=== PATIENT | male | born 1985 | race Caucasian/White ===

== ENCOUNTER 2022-11-11 06:32 | Day surgery (SDC) | payer OTHER ==
[~2022-11-11 06:32] MED LIST: Acetaminophen 1,000 MG in Premix Bag 1 BAG IV SCH; Lactated Ringers 1,000 ML IV SCH; Pregabalin 75 MG Cap PO SCH; ceFAZolin 2 GM in Premix Bag 1 BAG IV SCH
[2022-11-11] MEDS ORDERED: Ondansetron 4 MG/2 ML SDV IVPUSH PRN (06:52)
[2022-11-11] MEDS ORDERED: fentaNYL 50 MCG/ML SDV IVPUSH PRN (06:52)
[2022-11-11] MEDS ORDERED: Morphine 2 MG/ML SYRINGE IVPUSH PRN (06:52)
[2022-11-11] MEDS ORDERED: Metoclopramide 10 MG/2 ML SDV IVPUSH PRN (06:52)
[2022-11-11] MEDS ORDERED: HYDROmorphone 1 MG/ML Syringe IVPUSH PRN (06:52)
[2022-11-11] MEDS ORDERED: Naloxone 0.4 MG/ML SDV IVPUSH PRN (06:52)
[2022-11-11] MEDS ORDERED: Albuterol 0.083% 2.5 MG/3 ML Neb Soln NEB PRN (06:52)
[2022-11-11] MEDS ORDERED: Bupivacaine 0.5% 30 ML SDV ONE (07:34)
[2022-11-11] MEDS ORDERED: Ropivacaine 0.5% 5 MG/ML 30 ML SDV ONE (07:40)
[2022-11-11] MEDS ORDERED: fentaNYL 100 MCG/2 ML SDV ONE ×4 (07:40→09:44)
[2022-11-11] MEDS ORDERED: Propofol 200 MG/20 ML SDV ONE (07:40)
[2022-11-11] MEDS ORDERED: ceFAZolin 2 GM Vial ONE ×2 (08:27→08:59)
[2022-11-11] MEDS ORDERED: Sugammadex Sodium 200 MG/2 ML VIAL ONE (08:59)
[2022-11-11] MEDS ORDERED: Ondansetron 4 MG/2 ML SDV ONE (08:59)
[2022-11-11] MEDS ORDERED: Glycopyrrolate 0.2 MG/ML SDV ONE (08:59)
[2022-11-11] MEDS ORDERED: ePHEDrine 50 MG/ML SDV ONE (08:59)
[2022-11-11] MEDS ORDERED: Ketorolac 30 MG/ML SDV ONE (08:59)
[2022-11-11] MEDS ORDERED: Rocuronium Bromide 50 MG/5 ML Syringe ONE (08:59)
[2022-11-11] MEDS ORDERED: cefOXitin 1 GM Vial ONE (08:59)
[2022-11-11] MEDS ORDERED: Dexamethasone 4 MG/ML 5 ML MDV ONE (08:59)
[2022-11-11] MEDS ORDERED: HYDROmorphone 2 MG/ML Syringe ONE (09:29)
== END 2022-11-11 12:00 | disposition home or self-care (01) ==
LOC: MW.SDS 06:32
PROVIDERS: ATTEND Surgery
DX: K43.2 Incisional hernia without obstruction or gangrene (principal); E66.9 Obesity, unspecified; Z68.41 Body mass index [BMI] 40.0-44.9, adult; Z90.49 Acquired absence of other specified parts of digestive tract; Z98.890 Other specified postprocedural states; Z87.891 Personal history of nicotine dependence
CPT/HCPCS: 49593; A9270; J0131; J0690; J0694; J1100; J1170; J1885; J2405; J2704; J2795; J3010; J3490; J7120